=== PATIENT | female | born 1960 | race Caucasian/White ===

== ENCOUNTER 2016-06-20 21:53 | Observation (INO) | payer MEDICARE, MEDICAID ==
[2016-06-20] MEDS ORDERED: IPRATROPIUM BROMIDE 0.02% NEB 0.5 MG/2.5 ML AMPUL NEB ONE (23:15)
--- NOTE | 2016-06-20 23:17 | ER Document Report ---
ED General - General Chief Complaint: Shortness Of Breath Stated Complaint: SHORTNESS OF BREATH Notes: Patient is a 56 year old female who presents with progressively worsening shortness of breath over the last 48 hours. States that her research and development specialist called in prednisone and azithromycin for her symptoms but they have not improved since starting those medications. States that she believes she caught a respiratory infection from her son who had recently been ill with similar symptoms. States that she cannot tolerate albuterol inhalers as they tend to make her "angry and crazy". She has not noted that anything worsen her symptoms. She normally uses oxygen only at night. Denies any associated fever , chest pain, abdominal pain vomiting or diarrhea. TRAVEL OUTSIDE OF THE [place] IN LAST 30 DAYS: No - Related Data Allergies/Adverse Reactions: No Known Allergies Allergy (Verified 02/16/16 02:16) Past Medical History - General Information source: Patient - Social History Smoking Status: Current Every Day Smoker Frequency of alcohol use: None Drug Abuse: None Lives with: Family Family History: COPD - Past Medical History Cardiac Medical History: Reports: Hx Coronary Artery Disease, Hx Hypercholesterolemia Pulmonary Medical History: Reports: Hx COPD GI Medical History: Reports: Hx Gastroesophageal Reflux Disease Psychiatric Medical History: Reports: Hx Depression Past Surgical History: Reports: Hx Cardiac Surgery, Hx Coronary Artery Bypass Graft, Hx Hysterectomy - Immunizations Hx Diphtheria, Pertussis, Tetanus Vaccination: - Unknown Hx Pneumococcal Vaccination: 04/04/13 Review of Systems - Review of Systems Notes: Constitutional: Negative for fever. HENT: Negative for sore throat. Eyes: Negative for visual changes. Cardiovascular: Negative for chest pain. Respiratory: Positive for shortness of breath. Gastrointestinal: Negative for abdominal pain, vomiting or diarrhea. Genitourinary: Negative for dysuria. Musculoskeletal: Negative for back pain. Skin: Negative for rash. Neurological: Negative for headaches, weakness or numbness. 10 point ROS negative except as marked above and in HPI. Physical Exam - Vital signs Interpretation: Tachypneic Notes: PHYSICAL EXAMINATION: GENERAL: Appears to be mildly uncomfortable and in moderate respiratory distress. HEAD: Atraumatic, normocephalic. EYES: Pupils equal round and reactive to light, extraocular movements intact, sclera anicteric, conjunctiva are normal. ENT: nares patent, oropharynx clear without exudates. Moderately dry mucous membranes. NECK: Normal range of motion, supple without lymphadenopathy LUNGS: Diffuse wheezing bilaterally in all lung wolff with prolonged expiratory phase. Mild to moderate respiratory distress with tachypnea and respiratory rate of 28. HEART: Regular rate and rhythm without murmurs ABDOMEN: Soft, nontender, normoactive bowel sounds. No guarding, no rebound. No masses appreciated. EXTREMITIES: Normal range of motion, no pitting or edema. No cyanosis. NEUROLOGICAL: No focal neurological deficits. Moves all extremities spontaneously and on command. PSYCH: Normal mood, normal affect. SKIN: Warm, Dry, normal turgor, no rashes or lesions noted. Course - Re-evaluation Re-evalutation: 06/20/16 23:16 Patient presented with moderate respiratory distress wheezing in all lung wolff and tight air movement throughout. At rest she does not have any significant retractions even minimal exertion including changing positions in the bed induces significant tachypnea. Patient initially told me that she could not tolerate albuterol inhalers secondary to side effects of agitation. He tried just ipratropium in addition to IV magnesium. Patient already received IV steroids by EMS. This does not seem to result in any improvement of patient's symptoms. When patient went to the restroom even getting in and out of the wheelchair resulted in an oxygenation saturation being from 94% on room air to 88% on room air and associated tachypnea and worsening of her air movement and wheezing on exam. I therefore started patient on continuous albuterol inhalers in conjunction with a low-dose of diazepam which she states has allowed her to tolerate albuterol in the past. However, given the degree of patient's tachypnea after even minimal exertion, she will require admission to the hospital. I discussed this case with Dr. Velasquez who has agreed to admit the patient at this time. - Laboratory Result Diagrams: 06/20/16 20:05 06/20/16 20:05 - Diagnostic Test Radiology reviewed: Image reviewed, Reports reviewed Radiology results interpreted by me: 06/21/16 01:57 Chest x-ray: No acute infiltrate Discharge - Discharge Clinical Impression: COPD exacerbation Condition: Good Disposition: HOME, SELF-CARE Admitting Provider: Sadaf Velasquez Unit Admitted: Telemetry
[2016-06-20] MEDS: MAGNESIUM SULFATE/D5W 100 ML IV SCH (23:30)
[2016-06-20 23:34] LABS: ABSOLUTE LYMPHOCYTES (AUTO) 1.7 10^3/uL (0.5-4.7); ABSOLUTE MONOCYTES (AUTO) 0.5 10^3/uL (0.1-1.4); ABSOLUTE NEUT (AUTO) 3.6 10^3/uL (1.7-8.2); BASOPHILS % (AUTO) 0.7 % (0-2); EOSINOPHILS % (AUTO) 0.6 % (0-6); HEMATOCRIT 43.9 % (36.0-47.0); HEMOGLOBIN 14.5 g/dL (12.0-15.5); HGB HCT DIFFERENCE -0.4; LYMPHOCYTES % (AUTO) 29.1 % (13-45); MEAN CORPUSCULAR HEMOGLOBIN 28.9 pg (27.0-33.4); MEAN CORPUSCULAR HGB CONC 33.2 g/dL (32.0-36.0); MEAN CORPUSCULAR VOLUME 87 fl (80-97); MONOCYTES % (AUTO) 9.1 % (3-13); RED BLOOD COUNT 5.04 10^6/uL (3.72-5.28); RED CELL DISTRIBUTION WIDTH 12.6 % (11.5-14.0); SEGMENTED NEUTROPHILS % (AUTO) 60.5 % (42-78); WHITE BLOOD COUNT 5.9 10^3/uL (4.0-10.5)
[2016-06-20 23:38] LABS: ANION GAP 12 (5-19); BLOOD UREA NITROGEN 8 mg/dL (7-20); CALCIUM 9.5 mg/dL (8.4-10.2); CARBON DIOXIDE 25 mmol/L (22-30); CHLORIDE 105 mmol/L (98-107); CREATININE RESULT 0.61 mg/dL (0.52-1.25); GLUCOSE 85 mg/dL (75-110); POTASSIUM 3.7 mmol/L (3.6-5.0); SODIUM 141.9 mmol/L (137-145)
[2016-06-21] MEDS: MAGNESIUM SULFATE/D5W 100 ML IV SCH (00:48)
[2016-06-21 01:16] LABS: VENOUS BLOOD BASE EXCESS 0.4 mmol/L; VENOUS BLOOD HCO3 25.9 mmol/L (20-32); VENOUS BLOOD PCO2 44.9 mmHg (35-63); VENOUS BLOOD PH 7.38 (7.30-7.42)
[2016-06-21] MEDS ORDERED: ALBUTEROL SULFATE 0.083% NEB 2.5 MG/3 ML AMPUL NEB ONE (01:32)
[2016-06-21] MEDS ORDERED: DIAZEPAM INJ 10 MG/2 ML DISP.SYRIN IV ONE (01:33)
[2016-06-21] MEDS ORDERED: LANSOPRAZOLE 30 MG TAB.RAP.DR PO ONE (01:58)
[2016-06-21] MEDS ORDERED: ONDANSETRON HCL INJ/PF 4 MG/2 ML SDV IV PRN (01:58)
[2016-06-21] MEDS ORDERED: ACETAMINOPHEN 325 MG TABLET PO PRN (01:58)
[2016-06-21] MEDS ORDERED: LORATADINE 10 MG TABLET PO ONE (01:58)
[2016-06-21] MEDS ORDERED: IPRATROPIUM/ALBUTEROL 0.5-2.5 MG/3 ML AMPUL NEB SCH (02:00)
[2016-06-21] MEDS ORDERED: FLUTICASONE NASAL SPRAY 50 MCG/SPRY 120 SPRAY/16 GM NASL SCH (02:00)
[2016-06-21 03:28] VITALS: BP 116/70
--- NOTE | 2016-06-21 05:12 | H&P/Discharge Summary ---
Discharge Summary Admission Date/PCP: 06/21/16 01:58 Discharge Date: 06/21/16 Resuscitation Status: Full Code - Discharge Diagnosis (1) COPD exacerbation Is this a current diagnosis for this admission?: YesSummary: Referred to the hospitalist for observation of COPD exacerbation secondary to recent URI failing outpatient antibiotics and prednisone with worsening over the last 48 hours. Patient receives treatment with DuoNeb inhaler in addition to Valium given excessive anxiety. Patient's exam is notable for scattered crackles without rhonchi or wheeze complicated by patient affect of anger stating she has fired former physicians for providing her the same treatment and demands to be admitted to the hospital given her presentation of shortness of breath. She is explained that her current condition does not warrant or justify admission but a for condition deteriorates she may be reconsidered for admission. Nursing staff is frustrated stating she is hit the call nava 50 times since she arrived without emergent or urgent needs. After observation orders are placed patient again demands to be admitted then leaves AGAINST MEDICAL ADVICE. (2) Anxiety and depression Is this a current diagnosis for this admission?: YesSummary: Depression Patient denies homicidal or suicidal ideation. Patient received a single dose of Valium from the ER provider but now refuses further care, I believe her presentation is consistent with borderline personality disorder recommending outpatient mental health follow-up (3) Tobacco use disorder Is this a current diagnosis for this admission?: YesSummary: Tobacco Dependence patient received tobacco cessation counseling and offered nicotine replacement options however refuses nicotine patch. (4) Coronary artery disease Is this a current diagnosis for this admission?: YesSummary: Patient history of coronary artery bypass graft though has refused medications for years. Stating "the doctors don't help me" Allergies/Adverse Reactions: No Known Allergies Allergy (Verified 02/16/16 02:16) History of Present Illness Admission Date/PCP: 06/21/16 01:58 Patient complains of: Shortness of breath History of Present Illness: BETH JARRELL is a 56 year old female with a history of COPD, coronary artery disease and persistent tobacco dependence who presents after several days of nonproductive cough and shortness of breath. Referred to the hospitalist for observation of COPD exacerbation secondary to recent URI failing outpatient antibiotics and prednisone with worsening over the last 48 hours. Patient receives treatment with DuoNeb inhaler in addition to Valium given excessive anxiety. Patient's exam is notable for scattered crackles without rhonchi or wheeze complicated by patient affect of anger stating she has fired former physicians for providing her the same treatment and demands to be admitted to the hospital given her presentation of shortness of breath. She is explained that her current condition does not warrant or justify admission but a for condition deteriorates she may be reconsidered for admission. Nursing staff is frustrated stating she is hit the call nava 50 times since she arrived without emergent or urgent needs. After observation orders are placed patient again demands to be admitted then leaves AGAINST MEDICAL ADVICE. Past Medical History Cardiac Medical History: Reports: Coronary Artery Disease, Hyperlipidema Pulmonary Medical History: Reports: Chronic Obstructive Pulmonary Disease (COPD) GI Medical History: Reports: Gastroesophageal Reflux Disease Psychiatric Medical History: Reports: Depression Past Surgical History Past Surgical History: Reports: Coronary Artery Bypass Graft, Hysterectomy Social History Information Source: Patient, [facility] Records Lives with: Family Smoking Status: Current Every Day Smoker Frequency of Alcohol Use: None Hx Recreational Drug Use: No Drugs: None Hx Prescription Drug Abuse: No - Advance Directive Resuscitation Status: Full Code Family History Family History: COPD Parental Family History Reviewed: Yes Children Family History Reviewed: Yes Sibling(s) Family History Reviewed.: Yes Review of Systems ROS unobtainable: Other - Patient refuses Physical Exam Vital Signs: Temp Pulse Resp BP Pulse Ox 97.6 F 21 H 116/70 93 06/21/16 03:09 06/21/16 03:09 06/21/16 03:09 06/21/16 03:09 Intake & Output 06/19/16 06/20/16 06/21/16 11:59 11:59 11:59 Weight 49.895 kg Results Impressions: Chest X-Ray 06/20/16 22:51 IMPRESSION: COPD. NO ACUTE RADIOGRAPHIC FINDING IN THE CHEST. Assessment & Plan - Time Time Spent: 30 to 50 Minutes
[2016-06-21] MEDS ORDERED: HEPARIN SOD (PORCINE) 5,000 UNIT/ML 1 ML SYRINGE SUBCUT SCH (06:00)
[2016-06-21] MEDS ORDERED: DOCUSATE SODIUM 100 MG CAPSULE PO SCH (10:00)
== END 2016-06-21 03:46 | disposition left against medical advice (07) ==
LOC: ER 21:53 → EH 06-21 01:58 → UNDOADMOB 06-21 03:01 → EH 06-21 03:01
PROVIDERS: ADMIT Internal Medicine; ATTEND Internal Medicine
DX: J44.1 Chronic obstructive pulmonary disease with (acute) exacerbation (principal); F41.8 Other specified anxiety disorders; I25.10 Atherosclerotic heart disease of native coronary artery without angina pectoris; F17.200 Nicotine dependence, unspecified, uncomplicated; E78.5 Hyperlipidemia, unspecified; K21.9 Gastro-esophageal reflux disease without esophagitis; Z95.1 Presence of aortocoronary bypass graft
CPT/HCPCS: 94640 ×2; 99285; 96375; 96365; 96366; 36415; 85025; 80048; 82803; 71010; G0378; A9270 ×2; J3360; J3475 ×2; J3490

== ENCOUNTER 2017-10-23 21:19 | Emergency (ER) | payer MEDICARE, MEDICAID ==
[2017-10-23] MEDS ORDERED: ASPIRIN 81 MG TABLET, CHEWABLE PO ONE (21:58)
--- NOTE | 2017-10-23 22:47 | ER Document Report ---
ED Medical Screen (RME) - General Chief Complaint: Chest Pain Stated Complaint: CHEST PAIN Time Seen by Provider: 10/23/17 22:44 Mode of Arrival: Ambulatory Information source: Patient TRAVEL OUTSIDE OF THE [place] IN LAST 30 DAYS: No - HPI Patient complains to provider of: Chest pain Notes: 10/23/17 22:45 Patient is a 57-year-old female presenting to the emergency department complaining of chest pain that is worsened with exertion and has occurred intermittently since yesterday morning, she has a history of a quadruple bypass 3-1/2 years ago and states that the symptoms that she is having today is "25% of the symptoms" that she was having when she required the bypass surgery, patient smokes cigarettes, only medication at this point time is Crestor, she did take 975 of aspirin today prior to coming to the emergency department, her cone treater is Dr. Peralta 10/23/17 22:46 RAPID MEDICAL EVALUATION DISCLOSURE I have seen this patient as part of a Rapid Medical Evaluation and, if applicable, placed any initially appropriate orders. The patient will be seen and fully evaluated, including a full history and physical exam, by a provider ( in Main ED or Fast Track) when a room becomes available. - Related Data Allergies/Adverse Reactions: No Known Allergies Allergy (Verified 02/16/16 02:16) Past Medical History - Past Medical History Cardiac Medical History: Reports: Hx Coronary Artery Disease, Hx Hypercholesterolemia Pulmonary Medical History: Reports: Hx COPD GI Medical History: Reports: Hx Gastroesophageal Reflux Disease Psychiatric Medical History: Reports: Hx Depression Past Surgical History: Reports: Hx Cardiac Surgery, Hx Coronary Artery Bypass Graft, Hx Hysterectomy - Immunizations Hx Diphtheria, Pertussis, Tetanus Vaccination: - Unknown Physical Exam - Vital signs Vitals: Temp Pulse Resp BP Pulse Ox 97.9 F 65 16 127/78 H 98 10/23/17 21:51 10/23/17 21:51 10/23/17 21:51 10/23/17 21:51 10/23/17 21:51 Course - Vital Signs Vital signs: Temp Pulse Resp BP Pulse Ox 97.9 F 65 16 127/78 H 98 10/23/17 21:51 10/23/17 21:51 10/23/17 21:51 10/23/17 21:51 10/23/17 21:51 - Laboratory Result Diagrams: 10/23/17 22:10 10/23/17 22:10 Doctor's Discharge - Discharge Referrals: HAILEY PERALTA MD [Primary Care Provider] - Follow up as needed
[2017-10-23 22:49] LABS: ABSOLUTE EOSINOPHILS # (AUTO) 0.1 10^3/uL (0.0-0.6); ABSOLUTE LYMPHOCYTES (AUTO) 2.6 10^3/uL (0.5-4.7); ABSOLUTE MONOCYTES (AUTO) 0.5 10^3/uL (0.1-1.4); ABSOLUTE NEUT (AUTO) 3.4 10^3/uL (1.7-8.2); BASOPHILS % (AUTO) 0.6 % (0-2); EOSINOPHILS % (AUTO) 1.1 % (0-6); HEMATOCRIT 42.7 % (36.0-47.0); HEMOGLOBIN 14.5 g/dL (12.0-15.5); LYMPHOCYTES % (AUTO) 39.6 % (13-45); MEAN CORPUSCULAR HGB CONC 33.9 g/dL (32.0-36.0); MEAN CORPUSCULAR VOLUME 89 fl (80-97); MONOCYTES % (AUTO) 7.4 % (3-13); PLATELET COUNT 276 10^3/uL (150-450); RED BLOOD COUNT 4.82 10^6/uL (3.72-5.28); RED CELL DISTRIBUTION WIDTH 12.6 % (11.5-14.0); SEGMENTED NEUTROPHILS % (AUTO) 51.3 % (42-78); TOTAL CELLS COUNTED % (AUTO) 100 %; WHITE BLOOD COUNT 6.6 10^3/uL (4.0-10.5)
--- NOTE | 2017-10-23 22:53 | RADIOLOGY REPORT (SQ) ---
EXAM DESCRIPTION: CHEST SINGLE VIEW COMPLETED DATE/TIME: 10/23/2017 10:26 pm REASON FOR STUDY: cp COMPARISON: Chest x-ray 02/16/2016. EXAM PARAMETERS: NUMBER OF VIEWS: One view. TECHNIQUE: Single frontal radiographic view of the chest acquired. RADIATION DOSE: NA LIMITATIONS: None. FINDINGS: LUNGS AND PLEURA: No consolidation, pneumothorax or pleural effusion. MEDIASTINUM AND HILAR STRUCTURES: No masses. Contour normal. HEART AND VASCULAR STRUCTURES: Heart normal in size. Normal vasculature. BONES: No acute findings. HARDWARE: Sternotomy wires are present. IMPRESSION: NO ACUTE RADIOGRAPHIC FINDING IN THE CHEST. TECHNICAL DOCUMENTATION: JOB ID: [id number] 2010 [employer]- All Rights Reserved Reading location - IP/workstation name: [email or web address]
[2017-10-23 23:10] LABS: ALANINE AMINOTRANSFERASE 30 U/L (9-52); ALBUMIN 3.7 g/dL (3.5-5.0); ALKALINE PHOSPHATASE 88 U/L (38-126); ANION GAP 10 (5-19); ASPARTATE AMINO TRANSFERASE 22 U/L (14-36); BILIRUBIN,DIRECT 0.2 mg/dL (0.0-0.4); BILIRUBIN,TOTAL 0.4 mg/dL (0.2-1.3); BLOOD UREA NITROGEN 13 mg/dL (7-20); CALCIUM 9.4 mg/dL (8.4-10.2); CARBON DIOXIDE 25 mmol/L (22-30); CHLORIDE 105 mmol/L (98-107); CREATINE KINASE 88 U/L (30-135); GLUCOSE 95 mg/dL (75-110); POTASSIUM 4.1 mmol/L (3.6-5.0); SODIUM 139.9 mmol/L (137-145); TOTAL PROTEIN 6.3 g/dL (6.3-8.2)
--- NOTE | 2017-10-23 23:15 | EKG REPORT ---
SEVERITY:- BORDERLINE ECG - SINUS RHYTHM MARKEDLY POSTERIOR QRS AXIS CONSIDER RIGHT VENTRICULAR HYPERTROPHY : Confirmed by: Betzaida Schultz 23-Oct-2017 23:14:52
[2017-10-23 23:20] LABS: CREATINE KINASE MB 1.17 ng/mL (<4.55)
[2017-10-23 23:22] LABS: TROPONIN I < 0.012 ng/mL
--- NOTE | 2017-10-24 01:25 | ER Document Report ---
ED General - General Chief Complaint: Chest Pain Stated Complaint: CHEST PAIN Time Seen by Provider: 10/23/17 22:44 Mode of Arrival: Ambulatory Notes: Patient is a 57 year old female with a past medical history of coronary artery disease status post CABG 3.5 years ago, COPD, continues to smoke tobacco who presents with 2 episodes of chest pain over the past 48 hours. Patient states that on Tuesday she had a episode of chest pain while driving to [place] that lasted for approximately 1 hour and then spontaneously resolved. She states that she was fine to follow-up with her litigator Dr. Peralta on Tuesday but her family insisted that she come to the emergency department tonight as she had a recurrent episode of chest pain at approximately 8 PM that was a heaviness in her chest with associated discomfort in her jaw and left upper extremity. She states that this pain likewise resolved and has not recurred since that time. She denies any associated shortness of breath, nausea, vomiting or diaphoresis. Denies any recent history of similar symptoms prior to the past 2 days. Patient is requesting to be discharged. TRAVEL OUTSIDE OF THE [place] IN LAST 30 DAYS: No - Related Data Allergies/Adverse Reactions: No Known Allergies Allergy (Verified 02/16/16 02:16) Past Medical History - General Information source: Patient - Social History Smoking Status: Current Every Day Smoker Frequency of alcohol use: None Drug Abuse: None Lives with: Alone Family History: COPD Patient has suicidal ideation: No Patient has homicidal ideation: No - Past Medical History Cardiac Medical History: Reports: Hx Coronary Artery Disease, Hx Hypercholesterolemia Pulmonary Medical History: Reports: Hx COPD Renal/ Medical History: Denies: Hx Peritoneal Dialysis GI Medical History: Reports: Hx Gastroesophageal Reflux Disease Psychiatric Medical History: Reports: Hx Depression Past Surgical History: Reports: Hx Cardiac Surgery, Hx Coronary Artery Bypass Graft, Hx Hysterectomy - Immunizations Hx Diphtheria, Pertussis, Tetanus Vaccination: - Unknown Hx Pneumococcal Vaccination: 04/04/13 Review of Systems - Review of Systems Notes: Constitutional: Negative for fever. HENT: Negative for sore throat. Eyes: Negative for visual changes. Cardiovascular: Positive for chest pain. Respiratory: Negative for shortness of breath. Gastrointestinal: Negative for abdominal pain, vomiting or diarrhea. Genitourinary: Negative for dysuria. Musculoskeletal: Negative for back pain. Skin: Negative for rash. Neurological: Negative for headaches, weakness or numbness. 10 point ROS negative except as marked above and in HPI. Physical Exam - Vital signs Vitals: Temp Pulse Resp BP Pulse Ox 97.9 F 65 16 127/78 H 98 10/23/17 21:51 10/23/17 21:51 10/23/17 21:51 10/23/17 21:51 10/23/17 21:51 Interpretation: Normal Notes: PHYSICAL EXAMINATION: GENERAL: Appears older than stated age, no acute distress HEAD: Atraumatic, normocephalic. EYES: Pupils equal round and reactive to light, extraocular movements intact, sclera anicteric, conjunctiva are normal. ENT: nares patent, oropharynx clear without exudates. Moderately dry mucous membranes. NECK: Normal range of motion, supple without lymphadenopathy LUNGS: Breath sounds clear to auscultation bilaterally and equal. No wheezes rales or rhonchi. HEART: Regular rate and rhythm without murmurs ABDOMEN: Soft, nontender, normoactive bowel sounds. No guarding, no rebound. No masses appreciated. EXTREMITIES: Normal range of motion, no pitting or edema. No cyanosis. NEUROLOGICAL: No focal neurological deficits. Moves all extremities spontaneously and on command. PSYCH: Normal mood, normal affect. SKIN: Warm, Dry, normal turgor, no rashes or lesions noted. Course - Re-evaluation Re-evalutation: 10/24/17 01:21 Presentation of chest pain in an otherwise well appearing patient. ACS is on the differential given the patient's clinical history, known multiple risk factors although initial EKG is unchanged from prior and she has a negative initial troponin. PE also seems unlikely given clinical history, absence of tachycardia or dyspnea. Patient is PERC criteria negative. CXR without evidence of pneumothorax or pneumonia. No widened mediastinum. Aortic dissection also seems unlikely given history, symmetric pulses, CXR, and vitals. The patient has declined to remain in the emergency department for a repeat troponin test. She has agreed to a blood draw prior to discharge but will not remain for the results of the test and has asked that I call her only if it is positive. I have advised the patient and her daughter at the bedside that this would not be a typical standard protocol or practice and that I can not consent to this. However, we will take the opportunity to obtain a second troponin test but the patient understands that this is not my plan and is going against my preferred approach to ensure that she has not had an infarction event. She also verbalizes an understanding that if she is having an infarction event discharge home would be extremely dangerous and could result in a more serious myocardial infarction or even . She and her daughter the bedside understand. She will be leaving AGAINST MEDICAL ADVICE. She has signed an AGAINST MEDICAL ADVICE form The patient has chosen to leave the facility against medical advice. The relevant issues have been reviewed and discussed with the patient and family at the bedside. At the time of this assessment there is no indication for involuntary commitment. The patient is alert, oriented, and able to express clearly their reasoning for not wanting to remain in the emergency department for further treatment. The patient is not clinically psychotic, intoxicated, and denies and suicidal ideation. Differential or suspected diagnoses based on medical screening exam: Possible ACS, known history of coronary artery disease The patient is aware of the concerning diagnoses and acknowledges understanding of the reasons for the following recommendations: Repeat troponin testing, consideration of hospitalization for inpatient stress testing and possible cardiac catheterization The following recommendations/services were offered and refused: See above The following risks were explained: , MS, worsening cardiac function, permanent disability, loss of function Clinical impression: Patient is competent to make decisions regarding the medical that is being offered. 10/24/17 03:04 Patient's repeat troponin that was drawn prior to her leaving did come back in the indeterminate range at 0.034. Although this is a minimal elevation is certainly concerning that it did uptrend particularly given her history. I did attempt to contact the patient twice by phone and she did not answer. - Vital Signs Vital signs: Temp Pulse Resp BP Pulse Ox 97.5 F 60 18 112/70 100 10/24/17 01:30 10/24/17 01:30 10/24/17 01:30 10/24/17 01:30 10/24/17 01:30 - Laboratory Result Diagrams: 10/23/17 22:10 10/23/17 22:10 - Diagnostic Test Radiology reviewed: Image reviewed, Reports reviewed - EKG Interpretation by Me Additional EKG results interpreted by me: 10/24/17 03:06 Sinus rhythm. Rate 66. T-wave flattening in the lateral leads. No ST elevations or depressions. QTC is 424. Discharge - Discharge Clinical Impression: Chest pain Qualifiers: Chest pain type: unspecified Qualified Code(s): R07.9 - Chest pain, unspecified Coronary artery disease Qualifiers: Coronary Disease-Associated Artery/Lesion type: unspecified vessel or lesion type [place] vs. transplanted heart: [place] heart Associated angina: with unspecified angina Qualified Code(s): I25.119 - Atherosclerotic heart disease of [place] coronary artery with unspecified angina pectoris Condition: Fair Disposition: AGAINST MEDICAL ADVICE Additional Instructions: Please follow-up with litigator tomorrow as we discussed. I have asked that she remain in the emergency department for follow-up and repeat lab testing you have declined to do so. Per your request, I will contact you if your troponin is elevated on the redraw. Please return to the emergency brought immediately to develop recurrence of chest pain, shortness of breath, vomiting, or any other symptoms that are worrisome to you. Referrals: HAILEY PERALTA MD [Primary Care Provider] - Follow up tomorrow
[2017-10-24 01:33] VITALS: BP 112/70
== END 2017-10-24 01:37 | disposition left against medical advice (07) ==
LOC: ER 21:19
DX: I25.119 Atherosclerotic heart disease of native coronary artery with unspecified angina pectoris (principal); R74.8 Abnormal levels of other serum enzymes; J44.9 Chronic obstructive pulmonary disease, unspecified; F17.200 Nicotine dependence, unspecified, uncomplicated; Z95.1 Presence of aortocoronary bypass graft; Z53.20 Procedure and treatment not carried out because of patient's decision for unspecified reasons
CPT/HCPCS: 36415; 71045; 80053; 82550; 82553; 84484; 85025; 93005; 93010; 99285

== ENCOUNTER 2019-01-11 17:45 | Emergency (ER) | payer MEDICARE, MEDICAID ==
--- NOTE | 2019-01-11 17:48 | ER Document Report ---
ED Medical Screen (RME) - General Stated Complaint: RIGHT WRIST INJURY, HEAD PAIN Time Seen by Provider: 01/11/19 17:47 Primary Care Provider: NELA MORRELL FNP-C [Primary Care Provider] - Follow up as needed Notes: Patient presents emergency department with right wrist pain. Reports she fell landed on her wrist. Deformity noted. Patient has good cap refill I have greeted and performed a rapid initial assessment of this patient. A co mprehensive ED assessment and evaluation of the patient, analysis of test results and completion of the medical decision making process will be conducted by additional ED providers. Dictation of this chart was performed using voice recognition software; therefore, there may be some unintended grammatical errors. TRAVEL OUTSIDE OF THE [place] IN LAST 30 DAYS: No - Related Data Allergies/Adverse Reactions: No Known Allergies Allergy (Verified 02/16/16 02:16) Past Medical History - Past Medical History Cardiac Medical History: Reports: Hx Coronary Artery Disease, Hx Hypercholesterolemia Pulmonary Medical History: Reports: Hx COPD Renal/ Medical History: Denies: Hx Peritoneal Dialysis GI Medical History: Reports: Hx Gastroesophageal Reflux Disease Psychiatric Medical History: Reports: Hx Depression Past Surgical History: Reports: Hx Cardiac Surgery, Hx Coronary Artery Bypass Graft, Hx Hysterectomy - Immunizations Hx Diphtheria, Pertussis, Tetanus Vaccination: - Unknown Doctor's Discharge - Discharge Referrals: NELA MORRELL FNP-C [Primary Care Provider] - Follow up as needed
--- NOTE | 2019-01-11 18:15 | RADIOLOGY REPORT (SQ) ---
EXAM DESCRIPTION: WRIST RIGHT 3 VIEWS COMPLETED DATE/TIME: 01/11/2019 6:01 pm REASON FOR STUDY: pain, COMPARISON: None. NUMBER OF VIEWS: Three views. TECHNIQUE: AP, lateral, and oblique radiographic images acquired of the right wrist. LIMITATIONS: None. FINDINGS: MINERALIZATION: Normal. BONES: Transverse fracture of the distal radius with volar angulation. SOFT TISSUES: No soft tissue swelling. No foreign body. OTHER: No other significant finding. IMPRESSION: Distal radial fracture. TECHNICAL DOCUMENTATION: JOB ID: [id number] [employer]- All Rights Reserved Reading location - IP/workstation name: [email or web address]
--- NOTE | 2019-01-11 18:22 | ER Document Report ---
ED General - General Stated Complaint: RIGHT WRIST INJURY, HEAD PAIN Time Seen by Provider: 01/11/19 17:47 Primary Care Provider: TRISTIAN JOHNSTON MD [ACTIVE STAFF] - Follow up as needed NELA MORRELL FNP-C [Primary Care Provider] - Follow up tomorrow GLENN ANDINO JR, DO [ACTIVE PROVISIONAL STAFF] - Follow up in 3-5 days TRAVEL OUTSIDE OF THE [place] IN LAST 30 DAYS: No - HPI Notes: 58-year-old female presents to the ED for evaluation of right wrist pain after falling proximately 1 hour ago. Denies any change in level consciousness or neuro changes. Has not tried any [id number] pain medications, worse with time, nothing makes better. Denies any numbness or tingling to bilateral upper extremities equally. Denies any previous history of fracture. Pain is 5 out of 10, throbbing. - Related Data Allergies/Adverse Reactions: No Known Allergies Allergy (Verified 02/16/16 02:16) Past Medical History - General Information source: Patient - Social History Smoking Status: Unknown if Ever Smoked Lives with: Spouse/Significant other Family History: COPD - Past Medical History Cardiac Medical History: Reports: Hx Coronary Artery Disease, Hx Hypercholeste rolemia Pulmonary Medical History: Reports: Hx COPD Renal/ Medical History: Denies: Hx Peritoneal Dialysis GI Medical History: Reports: Hx Gastroesophageal Reflux Disease Psychiatric Medical History: Reports: Hx Depression Past Surgical History: Reports: Hx Cardiac Surgery, Hx Coronary Artery Bypass Graft, Hx Hysterectomy - Immunizations Hx Diphtheria, Pertussis, Tetanus Vaccination: - Unknown Hx Pneumococcal Vaccination: 04/04/13 Review of Systems - Review of Systems Constitutional: No symptoms reported EENT: No symptoms reported Cardiovascular: No symptoms reported Respiratory: No symptoms reported Gastrointestinal: No symptoms reported Genitourinary: No symptoms reported Female Genitourinary: No symptoms reported Musculoskeletal: See HPI Skin: No symptoms reported Hematologic/Lymphatic: No symptoms reported Neurological/Psychological: No symptoms reported Physical Exam - Vital signs Vitals: Temp Pulse Resp BP Pulse Ox 97.5 F 70 18 129/67 H 99 01/11/19 17:52 01/11/19 17:52 01/11/19 17:52 01/11/19 17:52 01/11/19 17:52 - Notes Notes: PHYSICAL EXAMINATION: reviewed vital signs by RN GENERAL: Well-appearing, well-nourished and in no acute distress. HEAD: Atraumatic, normocephalic. EYES: Pupils equal round and reactive to light, extraocular movements intact, conjunctiva are normal. ENT: Nares patent, oropharynx clear without exudates. Moist mucous membranes. NECK: Normal range of motion, supple without lymphadenopathy LUNGS: Breath sounds clear to auscultation bilaterally and equal. No wheezes rales or rhonchi. HEART: Regular rate and rhythm without murmurs ABDOMEN: Soft, nontender, nondistended abdomen. No guarding, no rebound. No masses appreciated. Female : deferred Musculoskeletal: Normal range of motion, no pitting or edema. No cyanosis. Noted right wrist pain with flexion, extension, inversion, eversion of wrist. digits in right and left with full aprom.. [employer] Associate + 2 BUE equally. Snuffbox tenderness positive on right. radial pulses + 2 BUE equally. Negative kanavels sign. No open wounds or drainage from wrist. No vascular compromise.No body crepitus or focal area of TTP. Limited ROM with flexion, extension, ulnar/radial deviation . Motor and sensory function of ulnar, radial, medial nerves intact bilaterally and equally. NEUROLOGICAL: Cranial nerves grossly intact. Normal speech, normal gait. Normal sensory, motor exams PSYCH: Normal mood, normal affect. SKIN: Warm, Dry, normal turgor, no rashes or lesions noted. Course - Re-evaluation Re-evalutation: 01/11/19 18:33 58-year-old female, afebrile vital stable no distress. X-ray of right wrist shows a right distal radial fracture. Dr. Andino, contracting support specialist on-call notified at 1830, Dr. Andino is in the ED currently with another patient, will review films after finishing without patient. 1850-Dr. Andino at bedside consulting patient. Dr. Andino did reduce and splint patient please see his note. All questions concerns answered by this provider. Do not drive, drink or operate heavy machinery while taking medication to cause sedation and impairment of cognitive function. Follow-up with Dr. Andino outpatient. After performing a Medical Screening Examination, I estimate there is LOW risk for OPEN FRACTURE, COMPARTMENT SYNDROME, DEEP VENOUS THROMBOSIS, ACUTE TENDON RUPTURE, or NEUROVASCULAR INJURY thus I consider the discharge disposition reasonable. I have reevaluated this patient multiple times and no significant life threatening changes are noted. The patient and I have discussed the diagnosis and risks, and we agree with discharging home to closely follow-up with their primary doctor or the referral orthopedist with the understanding that symptoms and presentations can change. We also discussed returning to the Emergency Department immediately if new or worsening symptoms occur. We have discussed the symptoms which are most concerning (e.g., changing or worsening pain, numbness, weakness) that necessitate immediate return - Vital Signs Vital signs: Temp Pulse Resp BP Pulse Ox 97.5 F 70 18 129/67 H 99 01/11/19 17:52 01/11/19 17:52 01/11/19 17:52 01/11/19 17:52 01/11/19 17:52 Discharge - Discharge Clinical Impression: Distal radius fracture, right Condition: Stable Disposition: HOME, SELF-CARE Instructions: Compartment Syndrome Cautions ([facility]), Fractured Radius and Ulna ([facility]), Splint Pending Casting ([facility]), Splint Precautions ([facility]), Temporary Splint ([facility]) Additional Instructions: Return immediately for any new or worsening symptoms. Follow up with primary care provider, call tomorrow to make followup appointment. Prescriptions: Hydrocodone/Acetaminophen [[place] 5-325 Tablet] 1 each PO Q6HP PRN #8 tablet PRN Reason: Forms: Return to Work Referrals: GLENN ANDINO JR, DO [ACTIVE PROVISIONAL STAFF] - Follow up in 3-5 days NELA MORRELL FNP-C [Primary Care Provider] - Follow up tomorrow TRISTIAN JOHNSTON MD [ACTIVE STAFF] - Follow up as needed
[2019-01-11] MEDS ORDERED: LIDOCAINE 2% INJ (20 MG/ML) 20 ML MDV INJ ONE (18:48)
--- NOTE | 2019-01-11 19:59 | RADIOLOGY REPORT (SQ) ---
EXAM DESCRIPTION: WRIST RIGHT 2 VIEWS COMPLETED DATE/TIME: 01/11/2019 7:42 pm REASON FOR STUDY: post reduction xray COMPARISON: None. NUMBER OF VIEWS: Three views. TECHNIQUE: AP, lateral, and oblique radiographic images acquired of the right wrist. LIMITATIONS: None. FINDINGS: MINERALIZATION: Normal. BONES: Distal radial fracture is splinted. The alignment is satisfactory. SOFT TISSUES: No soft tissue swelling. No foreign body. OTHER: No other significant finding. IMPRESSION: Satisfactory alignment post reduction. TECHNICAL DOCUMENTATION: JOB ID: [id number] [employer]- All Rights Reserved Reading location - IP/workstation name: [email or web address]
[2019-01-11 20:04] VITALS: BP 112/55
--- NOTE | 2019-01-11 21:55 | PDOC CONSULTATION ---
Consultation Consult Date: 01/11/19 Provider Consulted: GLENN AMBROCIO JR History of Present Illness Admission Date/PCP: ELÍAS DELGADILLO History of Present Illness: BETH JARRELL is a 58 year old female presents to the ED for evaluation of right wrist pain after [place] of [place] goats. She reports also hitting her head but denies any change in level consciousness or neuro changes. She denies altered sensorium or visual changes. Denies alleviating or exacerbating factors. Pain is described as aching, throbbing at 5/10. Worse with motion, improved with rest. She reports deformity since that time. Does report some numbness to the radial fingers but mild. Denies any previous history of fracture. Past Medical History Cardiac Medical History: Reports: Coronary Artery Disease, Hyperlipidema Pulmonary Medical History: Reports: Chronic Obstructive Pulmonary Disease (COPD) GI Medical History: Reports: Gastroesophageal Reflux Disease Psychiatric Medical History: Reports: Depression Past Surgical History Past Surgical History: Reports: Coronary Artery Bypass Graft, Hysterectomy Social History Information Source: Patient Lives with: Spouse/Significant other Smoking Status: Former Smoker Electronic Cigarette use?: No Frequency of Alcohol Use: None Hx Recreational Drug Use: No Drugs: None Hx Prescription Drug Abuse: No Family History Family History: COPD Parental Family History Reviewed: No Children Family History Reviewed: No Sibling(s) Family History Reviewed.: No Medication/Allergy Home Medications: Acetaminophen [Tylenol 325 mg Tablet] 650 mg PO Q6HP PRN tablet 02/17/16 Doxycycline Hyclate [Vibramycin 100 mg Tablet] 100 mg PO Q12A #14 tablet 02/17/16 Ipratropium/Albuterol Sulfate [Duoneb 3 ml Ampul] 3 ml NEB Q6HP PRN #60 [email or web address] 02/17/16 Prednisone [Deltasone 10 mg Tablet] 10 mg PO ASDIR PRN #21 tablet 02/17/16 Hydrocodone/Acetaminophen [[place] 5-325 Tablet] 1 each PO Q6HP PRN #8 tablet 01/11/19 Allergies/Adverse Reactions: No Known Allergies Allergy (Verified 02/16/16 02:16) Review of Systems Review of Systems: Constitutional: No symptoms reported EENT: No symptoms reported Cardiovascular: No symptoms reported Respiratory: No symptoms reported Gastrointestinal: No symptoms reported Genitourinary: No symptoms reported Female Genitourinary: No symptoms reported Musculoskeletal: See HPI Skin: No symptoms reported Hematologic/Lymphatic: No symptoms reported Neurological/Psychological: No symptoms reported Physical Exam Vital Signs: Temp Pulse Resp BP Pulse Ox 98.1 F 65 17 112/55 L 99 01/11/19 20:02 01/11/19 20:02 01/11/19 20:02 01/11/19 20:02 01/11/19 20:02 Intake & Output 01/10/19 01/11/19 01/12/19 06:59 06:59 06:59 Weight 46.5 kg Physical Exam: General appearance: PRESENT: no acute distress, cooperative, well-nourished Head exam: PRESENT: atraumatic, normocephalic Eye exam: PRESENT: EOMI Ear exam: PRESENT: normal external ear exam Mouth exam: PRESENT: neck supple Neck exam: ABSENT: tracheal deviation Respiratory exam: PRESENT: symmetrical, unlabored. ABSENT: accessory muscle use, wheezes Pulses: PRESENT: normal radial pulses, normal dorsalis pedis pul Vascular exam: PRESENT: normal capillary refill GI/Abdominal exam: ABSENT: distended, firm Extremities exam: PRESENT: full ROM of bilateral shoulders, elbows wrists, knees, hips and ankles without pain Musculoskeletal exam: PRESENT: full ROM, normal inspection Neurological exam: PRESENT: alert, awake, oriented to person, oriented to place, oriented to time Psychiatric exam: PRESENT: appropriate affect. ABSENT: agitated Focused psych exam: ABSENT: catatonic Skin exam: PRESENT: intact. ABSENT: dry All as above aside from that noted in the HPI and the following: Deformity of the right distal radius, dorsally angulated Full motion and sensation the fingers, but some paresthesias in the radial digits Pulses 2+, cap refill<2sec Skin intact Compartments soft, minimal swelling No pain at the elbow Results Impressions: Wrist X-Ray 01/11/19 19:23 IMPRESSION: Satisfactory alignment post reduction. Assessment & Plan - Diagnosis (1) Distal radius fracture, right Qualifiers: Encounter type: initial encounter Fracture type: closed Is this a current diagnosis for this admission?: Yes Plan: - Closed reduction with local hematoma block provided. See procedure note for details. - The patient was placed in a well-molded sugartong splint - She is to leave this in place and follow up with me in 6-10 days - We will obtain XR at that time - OTC pain medication discussed with the patient - [place] RUE - All questions were answered. She was instructed to call my office with any further questions or acute needs in regard to her RUE
--- NOTE | 2019-01-11 22:02 | Operative Report ---
Operative Report DATE OF SURGERY: 01/11/19 PREOPERATIVE DIAGNOSIS: Right displaced distal radius fracture, extra-articular POSTOPERATIVE DIAGNOSIS: same OPERATION: CLosed reduction under local hematoma block. SURGEON: GLENN AMBROCIO JR ANESTHESIA: Local COMPLICATIONS: none ESTIMATED BLOOD LOSS: none PROCEDURE: After discussing risks and benefits of her treatment options, and all questions were answered, the patient provided verbal consent for closed reduction under local anesthesia. The site was prepped with alcohol, and an injection of 2% lidocaine was delivered to the fracture hematoma of approximately 6cc's. After adequate anesthesia, a reduction maneuver was performed and then a sugartong splint was placed. The patient tolerated the procedure well and remained neurovascularly intact following treatment.
== END 2019-01-11 20:02 | disposition home or self-care (01) ==
LOC: ER 17:45
PROC: 0PSHXZZ Reposition Right Radius, External Approach (ICD-10-PCS; principal; 2019-01-11)
DX: S52.501A Unspecified fracture of the lower end of right radius, initial encounter for closed fracture (principal); M25.531 Pain in right wrist; R51 Headache; W19.XXXA Unspecified fall, initial encounter; I25.10 Atherosclerotic heart disease of native coronary artery without angina pectoris; J44.9 Chronic obstructive pulmonary disease, unspecified; Z87.891 Personal history of nicotine dependence; Z79.899 Other long term (current) drug therapy
CPT/HCPCS: 99284; 73100; 73110; 25605; J3490